=== PATIENT | female | born 1935 | race Caucasian/White ===

== ENCOUNTER 2018-11-19 11:44 | Inpatient (IN) | payer MEDICARE, MEDICAID ==
[~2018-11-19] VITALS: Ht 165.1 cm; Wt 152.6 kg
[~2018-11-19 11:44] MED LIST: CHLO50TA PO; DEXT15DR7 EACHEYE; HYDR-4353 PO; HYDR28OI2 TP; LEVO125T PO; LISI2.5T2 PO; POTA20TA19 PO; ZOLP5TAB8 PO
[2018-11-19] MEDS ORDERED: ipratropium/albuterol 3ml nebule NEB ONE (11:55)
[2018-11-19] MEDS ORDERED: furosemide 40mg/4ml inj IV ONE (11:55)
[2018-11-19] MEDS ORDERED: methylPREDNISolone sod succ 125mg/2ml vial IV ONE (11:55)
[2018-11-19 12:31] LABS: ABG BASE EXCESS 3.6 mmol/L (-2.0-3.0); ABG HCO3 30.5 mmol/L (22.0-26.0); ABG OXYGEN SATURATION 93.4 % (95-98); ABG PCO2 (T) 55.7 mmHg (32.0-45.0); ABG PH (T) 7.356 (7.350-7.450); ABG PO2 (T) 68.8 mmHg (83-108); ALLEN'S TEST Positive; FCOHb 1.6 % (0.5-1.5); FLOW 5 L/min; FMetHb 0.2 % (0.3-1.12); FO2Hb 91.7 % (94-100); TOTAL HEMOGLOBIN 13.9 G/dl (12.0-16.0)
[2018-11-19] MEDS ORDERED: acetaminophen 325mg tablet PO ONE (12:40)
[2018-11-19 12:43] LABS: EOSINOPHILS % (AUTO) 0.1 % (0-6); HEMOGLOBIN 13.3 g/dl (12.0-16.0); LYMPHOCYTES # (AUTO) 0.2 X10'3 (1.1-4.8)
[2018-11-19 12:45] LABS: BASOPHILS % (AUTO) 0.1 % (0-1); LYMPHOCYTES % (AUTO) 1.6 % (21-51); MEAN CORPUSCULAR HGB CONC 33.2 g/dL (33.0-36.5); MEAN CORPUSCULAR VOLUME 96.2 FL (78-98); MEAN PLATELET VOLUME 8.8 FL (7.4-10.4); MONOCYTES # (AUTO) 0.4 X10'3 (0-0.9); MONOCYTES % (AUTO) 3.3 % (2-12); NEUTROPHILS # (AUTO) 11.6 X10'3 (1.8-7.7); NEUTROPHILS % (AUTO) 94.9 % (42-75); PLATELET COUNT 153 X10'3 (140-440); RED BLOOD COUNT 4.16 X10'6 (4.20-5.60); RED CELL DISTRIBUTION WIDTH 13.6 % (11.5-14.5); WHITE BLOOD COUNT 12.2 X10'3 (4.5-11.0)
[2018-11-19 12:55] LABS: PARTIAL THROMBOPLASTIN TIME 31 SECONDS (22-32)
[2018-11-19 13:13] LABS: ALANINE AMINOTRANSFERASE 26 U/L (12-78); ALBUMIN 3.6 G/DL (3.4-5.0); ALBUMIN/GLOBULIN RATIO 0.9 (1.1-1.5); ALKALINE PHOSPHATASE 94 IU/L (46-116); ANION GAP 2 (8-16); ASPARTATE AMINO TRANSFERASE 27 U/L (10-37); BILIRUBIN,TOTAL 0.6 MG/DL (0.1-1.0); BLOOD UREA NITROGEN 16 MG/DL (7-18); BUN/CREATININE RATIO 18.8 (6.6-38.0); CALCIUM 8.9 MG/DL (8.5-10.1); CHLORIDE 97 MMOL/L (99-107); CREATININE 0.85 MG/DL (0.40-0.90); GLUCOSE 120 MG/DL (70-104); POTASSIUM 3.8 MMOL/L (3.5-5.1); SODIUM 134 MMOL/L (135-145); TOTAL CARBON DIOXIDE 35.4 MMOL/L (24-32); TOTAL PROTEIN 7.7 G/DL (6.4-8.2); eGFR 64 ML/MIN
[2018-11-19] MEDS ORDERED: potassium CL 10mEq/100ml bag 100 ML IV PRN ×2 (14:35)
[2018-11-19] MEDS ORDERED: ondansetron/PF 4mg/2ml inj IV PRN (14:35)
[2018-11-19] MEDS ORDERED: potassium Cl 20 mEq SR tablet PO PRN ×2 (14:35)
[2018-11-19] MEDS ORDERED: magnesium 2GM in 50ml NS 50 ML IV PRN (14:35)
[2018-11-19] MEDS ORDERED: magnesium 4gm in 100ml NS 100 ML IV PRN (14:35)
[2018-11-19] MEDS ORDERED: magnesium Cl slow-release 64mg tablet PO PRN (14:35)
[2018-11-19] MEDS ORDERED: ondansetron/PF 4mg/2ml inj IV ONE (14:55)
[2018-11-19] MEDS ORDERED: TIMO5DRO32 EACHEYE (15:05)
[2018-11-19] MEDS ORDERED: FURO-150 PO (15:12)
[2018-11-19] MEDS ORDERED: DOCU100C41 PO (15:12)
[2018-11-19] MEDS ORDERED: SENN-162 PO (15:12)
[2018-11-19] MEDS ORDERED: BISA10SU60 RC (15:12)
[2018-11-19] MEDS ORDERED: NITR0.4T51 SL (15:12)
--- NOTE | 2018-11-19 17:02 | NUR ---
TOOK REPORT BY TELEPHONE FROM ELIZABET ESPAÑA
--- NOTE | 2018-11-19 17:20 | NUR ---
RECEIVED FROM ER VIA [facility]. VS STABLE.
--- NOTE | 2018-11-19 17:40 | NUR ---
2 RN SKIN CHECK DONE.
[2018-11-19 17:45] VITALS: BP 115/69
--- NOTE | 2018-11-19 18:29 | NUR ---
Problems reprioritized. Patient report given, questions answered & plan of care reviewed with ELIZABET MANZANO.
--- NOTE | 2018-11-19 18:46 | NUR ---
Patient in room PCU 3028B. I have received report from ELIZABET Marr and had the opportunity to ask questions and assume patient care. Patient asleep for bedside report. 20G R forearm and is saline locked. Will continue to monitor closely.
[2018-11-19 19:00] VITALS: BP 115/69
[2018-11-19] MEDS: heparin, porcine 5000 units/ml vial SQ SCH (19:52)
--- NOTE | 2018-11-19 22:10 | NUR ---
Orders received for CPAP per Dr. Arora. Family brought in CPAP machine at bedside. Will continue to monitor closely.
[2018-11-19 23:00] VITALS: BP 117/55
[2018-11-20] VITALS (7 sets, daily range): BP systolic 110–136; BP diastolic 51–84
[2018-11-20 05:21] LABS: BASOPHILS % (AUTO) 0 % (0-1); EOSINOPHILS % (AUTO) 0 % (0-6); HEMATOCRIT 39.2 % (35.0-45.0); LYMPHOCYTES # (AUTO) 0.3 X10'3 (1.1-4.8); LYMPHOCYTES % (AUTO) 2.9 % (21-51); MEAN CORPUSCULAR HEMOGLOBIN 31.6 PG (27.0-31.0); MEAN CORPUSCULAR HGB CONC 33.1 g/dL (33.0-36.5); MEAN CORPUSCULAR VOLUME 95.7 FL (78-98); MONOCYTES # (AUTO) 0.4 X10'3 (0-0.9); MONOCYTES % (AUTO) 3.5 % (2-12); NEUTROPHILS # (AUTO) 10.9 X10'3 (1.8-7.7); NEUTROPHILS % (AUTO) 93.6 % (42-75); PLATELET COUNT 128 X10'3 (140-440); RED CELL DISTRIBUTION WIDTH 13.4 % (11.5-14.5); WHITE BLOOD COUNT 11.6 X10'3 (4.5-11.0)
[2018-11-20 05:43] LABS: ALBUMIN 3.1 G/DL (3.4-5.0); ANION GAP 6 (8-16); BLOOD UREA NITROGEN 14 MG/DL (7-18); BUN/CREATININE RATIO 19.7 (6.6-38.0); CALCIUM 8.8 MG/DL (8.5-10.1); CHLORIDE 97 MMOL/L (99-107); CREATININE 0.71 MG/DL (0.40-0.90); GLUCOSE 157 MG/DL (70-104); MAGNESIUM 1.8 MG/DL (1.5-2.4); POTASSIUM 3.7 MMOL/L (3.5-5.1); SODIUM 136 MMOL/L (135-145); TOTAL CARBON DIOXIDE 32.8 MMOL/L (24-32); eGFR 79 ML/MIN
--- NOTE | 2018-11-20 06:23 | NUR ---
Problems reprioritized. Patient report given, questions answered & plan of care reviewed with ELIZABET Marr.
--- NOTE | 2018-11-20 06:30 | NUR ---
Patient in room PCU 3028. I have received report from ELIZABET MANZANO and had the opportunity to ask questions and assume patient care.
[2018-11-20] MEDS: K and/or MAG REPLACEMENT MC SCH (08:00)
[2018-11-20] MEDS: heparin, porcine 5000 units/ml vial SQ SCH ×2 (08:32→20:41)
--- NOTE | 2018-11-20 11:45 | NUR ---
PAGER ID: [phone] MESSAGE: DR. SHELTON, 3028B/JOHANNY, C/O LEVEL 10/10 HEAD ACHE PAIN, HAVE NO TREATMENT ORDERS FOR PAIN. MED REC DOES NOT APPEAR TO BE ADDRESSED BY MD. PERALES, [id number]. TY.
--- NOTE | 2018-11-20 12:54 | NUR ---
PAGER ID: [phone] MESSAGE: DR. SHELTON, 3028B/JOHANNY, C/O LEVEL 10/10 HEAD ACHE PAIN, HAVE NO TREATMENT ORDERS FOR PAIN. MED REC DOES NOT APPEAR TO BE ADDRESSED BY MD. PERALES, [id number]. TY.
[2018-11-20] MEDS ORDERED: docusate sod 100mg capsule PO PRN (12:55)
[2018-11-20] MEDS ORDERED: bisacodyl 10mg suppository rectal RC PRN (12:55)
[2018-11-20] MEDS ORDERED: polyvinyl alcohol ophthalmic drops 15ml bottle EACHEYE PRN (12:55)
[2018-11-20] MEDS ORDERED: sennosides 8.6mg tablet PO PRN (12:55)
[2018-11-20] MEDS ORDERED: nitroGLYCERIN 0.4mg SUBLingual tab SL PRN (12:55)
[2018-11-20] MEDS: levoTHYROXINE 125mcg tablet PO SCH (13:17)
[2018-11-20] MEDS: lisinopril 2.5mg tablet PO SCH (13:18)
[2018-11-20] MEDS: HYDROcodone/acetaminophen 10/325mg tab PO PRN (13:19)
--- NOTE | 2018-11-20 18:28 | NUR ---
Problems reprioritized. Patient report given, questions answered & plan of care reviewed with ELIZABET MANZANO.
--- NOTE | 2018-11-20 18:57 | NUR ---
Patient in room PCU 3028b. I have received report from ELIZABET Marr and had the opportunity to ask questions and assume patient care. Patient awake for bedside report and stable at this time. Will continue to monitor closely.
[2018-11-20] MEDS: timolol 0.5% ophthalmic solution 5ml bottle EACHEYE SCH (20:43)
[2018-11-21 04:48] LABS: BASOPHILS % (AUTO) 0.1 % (0-1); EOSINOPHILS # (AUTO) 0.1 X10'3 (0-0.9); EOSINOPHILS % (AUTO) 0.8 % (0-6); HEMATOCRIT 35.7 % (35.0-45.0); LYMPHOCYTES # (AUTO) 1.1 X10'3 (1.1-4.8); LYMPHOCYTES % (AUTO) 13.4 % (21-51); MEAN CORPUSCULAR HEMOGLOBIN 32.6 PG (27.0-31.0); MEAN CORPUSCULAR HGB CONC 33.5 g/dL (33.0-36.5); MEAN CORPUSCULAR VOLUME 97.1 FL (78-98); MEAN PLATELET VOLUME 9.2 FL (7.4-10.4); MONOCYTES # (AUTO) 0.8 X10'3 (0-0.9); MONOCYTES % (AUTO) 9.7 % (2-12); NEUTROPHILS # (AUTO) 6.3 X10'3 (1.8-7.7); PLATELET COUNT 135 X10'3 (140-440); RED BLOOD COUNT 3.67 X10'6 (4.20-5.60); RED CELL DISTRIBUTION WIDTH 13.7 % (11.5-14.5); WHITE BLOOD COUNT 8.3 X10'3 (4.5-11.0)
[2018-11-21 05:01] LABS: ALBUMIN 2.8 G/DL (3.4-5.0); ANION GAP 2 (8-16); BLOOD UREA NITROGEN 19 MG/DL (7-18); BUN/CREATININE RATIO 27.1 (6.6-38.0); CALCIUM 8.8 MG/DL (8.5-10.1); CHLORIDE 97 MMOL/L (99-107); GLUCOSE 94 MG/DL (70-104); MAGNESIUM 1.9 MG/DL (1.5-2.4); POTASSIUM 3.9 MMOL/L (3.5-5.1); SODIUM 133 MMOL/L (135-145); TOTAL CARBON DIOXIDE 34.4 MMOL/L (24-32); eGFR 80 ML/MIN
[2018-11-21 06:00] VITALS: BP 117/52
--- NOTE | 2018-11-21 06:45 | NUR ---
Problems reprioritized. Patient report given, questions answered & plan of care reviewed with ELIZABET PERALES.
--- NOTE | 2018-11-21 06:54 | NUR ---
Patient in room PCU 3028. I have received report from torres traore and had the opportunity to ask questions and assume patient care.
[2018-11-21] MEDS: K and/or MAG REPLACEMENT MC SCH (08:00)
[2018-11-21] MEDS: hydrocortisone 2.5% 20 gm ointment TP SCH (08:00)
[2018-11-21] MEDS: lisinopril 2.5mg tablet PO SCH (08:26)
[2018-11-21] MEDS: levoTHYROXINE 125mcg tablet PO SCH (08:26)
[2018-11-21] MEDS: heparin, porcine 5000 units/ml vial SQ SCH ×2 (08:26→21:18)
[2018-11-21] MEDS: timolol 0.5% ophthalmic solution 5ml bottle EACHEYE SCH ×2 (08:27→21:17)
[2018-11-21 11:00] VITALS: BP 136/63
[2018-11-21] MEDS: aspirin 81mg tab.chew PO SCH (11:53)
--- NOTE | 2018-11-21 12:21 | NUR ---
PAGER ID: [phone] MESSAGE: DR. SHELTON,1146L/JOHANNY, RECEIVED MEDICAL RECORDS FROM [facility].IN CHART. ANGELLA [phone]. TY
[2018-11-21 15:00] VITALS: BP 123/46
--- NOTE | 2018-11-21 15:22 | NUR ---
PAGED RT:PLEASE CALL ANGELLA [phone] OR COME TO ROOM 3027B, I NEED YOUR EXPERTISE R/T BIPAP/02. TY
--- NOTE | 2018-11-21 18:18 | NUR ---
Problems reprioritized. Patient report given, questions answered & plan of care reviewed with ELIZABET MANZANO.
--- NOTE | 2018-11-21 18:38 | NUR ---
Patient in room PCU 3028b. I have received report from ELIZABET Marr and had the opportunity to ask questions and assume patient care. Patient awake for bedside report and stable at this time. On 2L nasal cannula and saline locked with 20G R FA. Will continue to monitor closely.
[2018-11-21 19:00] VITALS: BP 144/68
[2018-11-21 23:00] VITALS: BP 139/73
[2018-11-21] MEDS: HYDROcodone/acetaminophen 10/325mg tab PO PRN (23:33)
[2018-11-22 03:00] VITALS: BP 101/53
[2018-11-22 04:46] LABS: BASOPHILS % (AUTO) 0.3 % (0-1); EOSINOPHILS # (AUTO) 0.2 X10'3 (0-0.9); EOSINOPHILS % (AUTO) 3.1 % (0-6); HEMATOCRIT 37.4 % (35.0-45.0); HEMOGLOBIN 12.4 g/dl (12.0-16.0); LYMPHOCYTES # (AUTO) 1.3 X10'3 (1.1-4.8); LYMPHOCYTES % (AUTO) 22.2 % (21-51); MEAN CORPUSCULAR HEMOGLOBIN 32.1 PG (27.0-31.0); MEAN CORPUSCULAR HGB CONC 33.2 g/dL (33.0-36.5); MEAN CORPUSCULAR VOLUME 96.8 FL (78-98); MONOCYTES # (AUTO) 0.5 X10'3 (0-0.9); MONOCYTES % (AUTO) 9.3 % (2-12); NEUTROPHILS # (AUTO) 3.8 X10'3 (1.8-7.7); NEUTROPHILS % (AUTO) 65.1 % (42-75); PLATELET COUNT 151 X10'3 (140-440); RED BLOOD COUNT 3.86 X10'6 (4.20-5.60); RED CELL DISTRIBUTION WIDTH 13.4 % (11.5-14.5); WHITE BLOOD COUNT 5.8 X10'3 (4.5-11.0)
[2018-11-22 05:25] LABS: ALBUMIN 2.9 G/DL (3.4-5.0); ANION GAP 3 (8-16); BLOOD UREA NITROGEN 19 MG/DL (7-18); BUN/CREATININE RATIO 28.8 (6.6-38.0); CALCIUM 9.1 MG/DL (8.5-10.1); CHLORIDE 99 MMOL/L (99-107); CREATININE 0.66 MG/DL (0.40-0.90); GLUCOSE 88 MG/DL (70-104); POTASSIUM 4.2 MMOL/L (3.5-5.1); SODIUM 138 MMOL/L (135-145); TOTAL CARBON DIOXIDE 35.8 MMOL/L (24-32); eGFR 86 ML/MIN
--- NOTE | 2018-11-22 06:33 | NUR ---
Problems reprioritized. Patient report given, questions answered & plan of care reviewed with ELIZABET Gasca.
--- NOTE | 2018-11-22 06:36 | NUR ---
Patient in room PCU 3028. I have received report from Mat MCNEAL and had the opportunity to ask questions and assume patient care.
[2018-11-22] MEDS: levoTHYROXINE 125mcg tablet PO SCH (07:17)
[2018-11-22] MEDS: aspirin 81mg tab.chew PO SCH (07:17)
[2018-11-22] MEDS: lisinopril 2.5mg tablet PO SCH (07:17)
[2018-11-22] MEDS: timolol 0.5% ophthalmic solution 5ml bottle EACHEYE SCH ×2 (07:19→21:11)
[2018-11-22] MEDS: heparin, porcine 5000 units/ml vial SQ SCH ×2 (07:20→21:11)
[2018-11-22] MEDS: K and/or MAG REPLACEMENT MC SCH (08:00)
[2018-11-22] MEDS: hydrocortisone 2.5% 20 gm ointment TP SCH (08:00)
--- NOTE | 2018-11-22 10:16 | NUR ---
Initial: Pt admit with SOB and CHF. Pt currently on heart healthy diet with documented 75-100% PO intake meeting nutrient needs. [facility] 11/19. No nutrition diagnosis at this time. Will continue to follow. Recommendations: 1) Continue heart healthy diet 2) Routine bowel care 3) Wt per rx Addendum: 11/22/18 at [address] Amended: Links added.
[2018-11-22 11:00] VITALS: BP 122/59
--- NOTE | 2018-11-22 14:01 | NUR ---
PAGER ID: [phone] MESSAGE: 3028B JoseZahra if pt is going to be discharged today, transportation will need to be set up through [facility]. Thank you, Elo #[phone] Addendum: 11/22/18 at 1404 by Elo Burleson RN Dr. Garcia called back. Pt will not be discharged today. Per MD, qualify pt for home O2 to evaluate need to arrange for home O2.
[2018-11-22 15:00] VITALS: BP 122/57
--- NOTE | 2018-11-22 15:55 | NUR ---
O2 Sat while ambulating on room air: 88% Recovery O2 Sat while ambulating on 2 LPM: 93% No further documentation is necessary.
--- NOTE | 2018-11-22 15:58 | NUR ---
notified case management about O2 qualification.
--- NOTE | 2018-11-22 17:25 | NUR ---
PAGER ID: [phone] MESSAGE: 3028B Zahra Garcia. Pt. requesting PO Lasix and ambien, both home meds. pt. has a Hx of sleep apnea and wears a CPAP machine. Please advise. Tatyana [phone] Addendum: 11/22/18 at 1731 by Tatyana Gilmore RN ordered PO lasix 40mg BID and PRN ambien 5mg Addendum: 11/22/18 at 1738 by Tatyana Gilmore RN called back to modified pt. orders and to inform us that she put them in [employer]
[2018-11-22] MEDS ORDERED: zolpidem 5mg tablet PO PRN (17:35)
[2018-11-22] MEDS ORDERED: furosemide 10 MG/1 ML 10ml inj IV ONE (17:35)
--- NOTE | 2018-11-22 18:21 | NUR ---
Problems reprioritized. Patient report given, questions answered & plan of care reviewed with Jaspreet MCNEAL.
[2018-11-22 19:00] VITALS: BP 137/61
[2018-11-22 23:00] VITALS: BP 127/43
[2018-11-23 03:00] VITALS: BP 142/70
[2018-11-23 04:47] LABS: BASOPHILS % (AUTO) 0.3 % (0-1); EOSINOPHILS # (AUTO) 0.2 X10'3 (0-0.9); EOSINOPHILS % (AUTO) 4.2 % (0-6); HEMATOCRIT 37.9 % (35.0-45.0); HEMOGLOBIN 12.8 g/dl (12.0-16.0); LYMPHOCYTES # (AUTO) 0.9 X10'3 (1.1-4.8); LYMPHOCYTES % (AUTO) 18.2 % (21-51); MEAN CORPUSCULAR HEMOGLOBIN 32.6 PG (27.0-31.0); MEAN CORPUSCULAR HGB CONC 33.8 g/dL (33.0-36.5); MEAN CORPUSCULAR VOLUME 96.3 FL (78-98); MEAN PLATELET VOLUME 8.6 FL (7.4-10.4); MONOCYTES # (AUTO) 0.6 X10'3 (0-0.9); MONOCYTES % (AUTO) 11.8 % (2-12); NEUTROPHILS # (AUTO) 3.2 X10'3 (1.8-7.7); NEUTROPHILS % (AUTO) 65.5 % (42-75); PLATELET COUNT 147 X10'3 (140-440); RED BLOOD COUNT 3.94 X10'6 (4.20-5.60); RED CELL DISTRIBUTION WIDTH 13.2 % (11.5-14.5); WHITE BLOOD COUNT 4.9 X10'3 (4.5-11.0)
[2018-11-23 04:49] LABS: ALBUMIN 2.9 G/DL (3.4-5.0); ANION GAP 4 (8-16); BLOOD UREA NITROGEN 17 MG/DL (7-18); BUN/CREATININE RATIO 28.8 (6.6-38.0); CALCIUM 9.2 MG/DL (8.5-10.1); CHLORIDE 97 MMOL/L (99-107); CREATININE 0.59 MG/DL (0.40-0.90); GLUCOSE 99 MG/DL (70-104); MAGNESIUM 1.8 MG/DL (1.5-2.4); POTASSIUM 3.7 MMOL/L (3.5-5.1); SODIUM 134 MMOL/L (135-145); TOTAL CARBON DIOXIDE 32.8 MMOL/L (24-32); eGFR > 90 ML/MIN
[2018-11-23 06:00] VITALS: BP 106/73
--- NOTE | 2018-11-23 06:25 | NUR ---
Patient in room PCU 3028. I have received report from Jaspreet MCNEAL and had the opportunity to ask questions and assume patient care.
[2018-11-23 07:17] VITALS: BP_SYST 106
[2018-11-23] MEDS: levoTHYROXINE 125mcg tablet PO SCH (07:17)
[2018-11-23] MEDS: lisinopril 2.5mg tablet PO SCH (07:17)
[2018-11-23] MEDS: furosemide 40mg tablet PO SCH ×2 (07:17→08:00)
[2018-11-23] MEDS: timolol 0.5% ophthalmic solution 5ml bottle EACHEYE SCH (07:17)
[2018-11-23] MEDS: aspirin 81mg tab.chew PO SCH (07:17)
[2018-11-23] MEDS: hydrocortisone 2.5% 20 gm ointment TP SCH (07:18)
[2018-11-23] MEDS: K and/or MAG REPLACEMENT MC SCH (07:18)
[2018-11-23] MEDS: heparin, porcine 5000 units/ml vial SQ SCH (07:18)
[2018-11-23] MEDS ORDERED: ASPI-1265 PO (10:16)
--- NOTE | 2018-11-23 10:41 | NUR ---
Spoke to pt's son Dre at and explained to him that his mother is being discharged. I also explained to Dre that we his mother's power chair must be delivered to the hospital before transportation is arranged. Dre then explained that it is going to be a couple of hours before they can deliver chair.
--- NOTE | 2018-11-23 15:30 | NUR ---
VSS, patient is stable for discharge per md orders, d/c instructions reviewed with patient and all questions answered, new medication prescription called into [facility], iv dc'ed and clean dry dressing applied, tele 42 removed and returned, pt discharged @ 1500 to home using [employer] transportation with granddaughter in mechanical wheelchair, all belongings with patient and she took DME O2 concentrator.
== END 2018-11-23 15:00 | disposition home or self-care (01) | DRG 291 ==
LOC: ER 11:45 → PCU 3S 17:19 → CMPBEDREQ 11-20 21:00
PROVIDERS: ADMIT Internal Medicine; ATTEND Internal Medicine
PROC: 5A09357 Assistance with Respiratory Ventilation, Less than 24 Consecutive Hours, Continuous Positive Airway Pressure (ICD-10-PCS; principal; 2018-11-19)
PROC: 5A09357 Assistance with Respiratory Ventilation, Less than 24 Consecutive Hours, Continuous Positive Airway Pressure (ICD-10-PCS; 2018-11-20)
PROC: 5A09357 Assistance with Respiratory Ventilation, Less than 24 Consecutive Hours, Continuous Positive Airway Pressure (ICD-10-PCS; 2018-11-21)
PROC: 5A09357 Assistance with Respiratory Ventilation, Less than 24 Consecutive Hours, Continuous Positive Airway Pressure (ICD-10-PCS; 2018-11-22)
DX: I50.33 Acute on chronic diastolic (congestive) heart failure (principal); J96.21 Acute and chronic respiratory failure with hypoxia; Z68.43 Body mass index [BMI] 50.0-59.9, adult; I50.9 Heart failure, unspecified; G89.29 Other chronic pain; M19.90 Unspecified osteoarthritis, unspecified site; Z60.2 Problems related to living alone; Z66 Do not resuscitate; G47.33 Obstructive sleep apnea (adult) (pediatric); I48.91 Unspecified atrial fibrillation; E66.01 Morbid (severe) obesity due to excess calories; E03.9 Hypothyroidism, unspecified; J44.9 Chronic obstructive pulmonary disease, unspecified; I11.0 Hypertensive heart disease with heart failure; Z90.49 Acquired absence of other specified parts of digestive tract; Z90.710 Acquired absence of both cervix and uterus; Z88.0 Allergy status to penicillin; Z88.8 Allergy status to other drugs, medicaments and biological substances; Z86.73 Personal history of transient ischemic attack (TIA), and cerebral infarction without residual deficits; Z79.899 Other long term (current) drug therapy
CPT/HCPCS: 36415; 36600; 71045; 80048; 80053; 82803; 83605; 83735; 83880; 84443; 84484; 85018; 85025; 85610; 85730; 87040; 87081; 93005; 93306; 93971; 94640; 94760; 96374; 97110; 97161; 97530; 99285; G0378; J1644; J1940; J2405; J2930

== ENCOUNTER 2019-05-17 15:49 | Inpatient (IN) | payer MEDICARE, MEDICAID ==
[~2019-05-17] VITALS: Ht 170.2 cm; Wt 172.7 kg
[~2019-05-17 15:49] MED LIST changes: +ASPI-1265 PO; +BISA10SU60 RC; -CHLO50TA PO; +DOCU100C41 PO; +FURO-150 PO; +NITR0.4T51 SL; +SENN-162 PO; +TIMO5DRO32 EACHEYE
--- NOTE | 2019-05-17 16:07 | NUR ---
xray at bedside.
[2019-05-17 16:42] LABS: BASOPHILS % (AUTO) 0.4 % (0-1); EOSINOPHILS % (AUTO) 0.4 % (0-6); HEMATOCRIT 32.9 % (35.0-45.0); HEMOGLOBIN 10.9 g/dl (12.0-16.0); LYMPHOCYTES # (AUTO) 0.4 X10'3 (1.1-4.8); LYMPHOCYTES % (AUTO) 11.1 % (21-51); MEAN CORPUSCULAR HEMOGLOBIN 31.1 PG (27.0-31.0); MEAN CORPUSCULAR HGB CONC 33.1 g/dL (33.0-36.5); MEAN PLATELET VOLUME 8.6 FL (7.4-10.4); MONOCYTES # (AUTO) 0.5 X10'3 (0-0.9); MONOCYTES % (AUTO) 16.9 % (2-12); NEUTROPHILS # (AUTO) 2.3 X10'3 (1.8-7.7); NEUTROPHILS % (AUTO) 71.2 % (42-75); PLATELET COUNT 124 X10'3 (140-440); RED CELL DISTRIBUTION WIDTH 14.1 % (11.5-14.5); WHITE BLOOD COUNT 3.2 X10'3 (4.5-11.0)
[2019-05-17 16:56] LABS: PARTIAL THROMBOPLASTIN TIME 29 SECONDS (22-32)
[2019-05-17 16:57] LABS: ALANINE AMINOTRANSFERASE 15 U/L (12-78); ALBUMIN 3.4 G/DL (3.4-5.0); ALBUMIN/GLOBULIN RATIO 0.9 (1.1-1.5); ALKALINE PHOSPHATASE 103 IU/L (46-116); ANION GAP 1 (8-16); ASPARTATE AMINO TRANSFERASE 20 U/L (10-37); BILIRUBIN,TOTAL 0.5 MG/DL (0.1-1.0); BLOOD UREA NITROGEN 12 MG/DL (7-18); BUN/CREATININE RATIO 14.6 (6.6-38.0); CALCIUM 8.7 MG/DL (8.5-10.1); CHLORIDE 97 MMOL/L (99-107); CREATININE 0.82 MG/DL (0.40-0.90); GLUCOSE 105 MG/DL (70-104); POTASSIUM 4.1 MMOL/L (3.5-5.1); SODIUM 136 MMOL/L (135-145); TOTAL CARBON DIOXIDE 37.8 MMOL/L (24-32); TOTAL PROTEIN 7.2 G/DL (6.4-8.2); eGFR 67 ML/MIN
[2019-05-17] MEDS ORDERED: furosemide 40mg/4ml inj IV ONE (17:35)
[2019-05-17] MEDS ORDERED: VITE1000C PO (18:01)
[2019-05-17] MEDS ORDERED: ASPI-611 PO (18:01)
--- NOTE | 2019-05-17 18:12 | NUR ---
Pure Wick placed and attached to high suction. Patient adjusted in bed. Patient tolerated well.
--- NOTE | 2019-05-17 19:04 | NUR ---
Rt at bedside to place Pt on our Bipap, per order from HARRISON Winslow. He reports Pt to be placed on Bipap not due to severe sob at this time but to assist moving fluid from lungs dt CHF exacerbation. Pt currently on 5 liters no and 92% with RR 22. Pt appears in no distress. Does use cpap at night and family sacha her home unit. Pt with family at bedside. has [place]wick in place as Pt with difficulty getting oob and gets sob with moving. Was given lasix 40 mg iv w/in the past hour. Awaiting hospitalist.
[2019-05-17] MEDS ORDERED: potassium CL 10mEq/100ml bag 100 ML IV PRN ×2 (19:25)
[2019-05-17] MEDS ORDERED: potassium Cl 20 mEq SR tablet PO PRN ×2 (19:25)
[2019-05-17] MEDS ORDERED: ondansetron/PF 4mg/2ml inj IV PRN (19:25)
[2019-05-17] MEDS ORDERED: albuterol 2.5 MG/3 ML nebule NEB PRN ×2 (19:25)
[2019-05-17] MEDS ORDERED: sennosides 8.6mg tablet PO PRN (19:35)
[2019-05-17] MEDS: lisinopril 2.5mg tablet PO SCH (19:35)
[2019-05-17] MEDS ORDERED: bisacodyl 10mg suppository rectal RC PRN (19:35)
[2019-05-17] MEDS: levoTHYROXINE 125mcg tablet PO SCH (19:35)
[2019-05-17] MEDS ORDERED: nitroGLYCERIN 0.4mg SUBLingual tab SL PRN (19:35)
--- NOTE | 2019-05-17 19:44 | NUR ---
son, jo ann garrett, [phone] home phone. otilio levi, who is primary caregiver (same number). call with any updates. they are leaving now. pt given tea and reports she is very thirsty. sats on bipap w/35% fio2 now 97%. rr26. awiting ipa
[2019-05-17] MEDS ORDERED: polyvinyl alcohol ophthalmic drops 15ml bottle EACHEYE PRN (19:50)
[2019-05-17] MEDS: K and/or MAG REPLACEMENT MC SCH (20:00)
[2019-05-17] MEDS ORDERED: furosemide 20MG tablet PO SCH (20:00)
[2019-05-17] MEDS: heparin, porcine 5000 units/ml vial SQ SCH (20:00)
[2019-05-17 20:30] LABS: ABG BASE EXCESS 5.8 mmol/L (-2.0-3.0); ABG HCO3 32.4 mmol/L (22.0-26.0); ABG OXYGEN SATURATION 96.8 % (95-98); ABG PCO2 (T) 55.7 mmHg (35.0-45.0); ABG PH (T) 7.381 (7.350-7.450); ABG PO2 (T) 93.1 mmHg (83-108); ALLEN'S TEST Positive; FCOHb 0.7 % (0.5-1.5); FMetHb 0.1 % (0.3-1.12); MINUTE VOLUME 8 L/min; PATIENT TEMPERATURE 36.8; RESPIRATORY RATE 12 b/min; RESPIRATORY RATE (OBSERVED) 22 b/min; TOTAL HEMOGLOBIN 12.1 G/dl (12.0-16.0)
--- NOTE | 2019-05-17 20:34 | NUR ---
DR OCONNOR CALLING TO UPDATE ME THAT FOR ADMISSION, PT TO HAVE BIPAP ORDERS PRN AND PER RT RECOMMENDATIONS. PT ALSO OK TO USE HOME BIPAP UNIT IF PREFERABLE. RT, RAUL , UPDATED AND REPROTS PT PREFERS TO USE OUR UNIT THROUGH THE NIGHT.
--- NOTE | 2019-05-17 21:26 | NUR ---
IPA 316A, REPORT TO ELIZABET PETERSON, [facility]. PT IS A&OX4 AND COOPERATIVE WITH CARE. REMAINS ON BIPAP AT 35% FIO2. AFIB ON MONITOR. DENIES ANY CP.
[2019-05-17 22:00] VITALS: BP 144/85
--- NOTE | 2019-05-17 22:50 | NUR ---
Patient in room MED 316. I have received report from Comfort MCNEAL and had the opportunity to ask questions and assume patient care.
--- NOTE | 2019-05-18 00:50 | NUR ---
Paged Dr. Garcia. Zahra Matamoros Allen. Room 316 We need an official order for the Bipap. Normally uses one at home when she's sleeping.
[2019-05-18 02:00] VITALS: BP 145/78
[2019-05-18 06:00] VITALS: BP 141/73
[2019-05-18 06:19] LABS: BASOPHILS % (AUTO) 0.4 % (0-1); EOSINOPHILS % (AUTO) 1.1 % (0-6); HEMATOCRIT 31.5 % (35.0-45.0); HEMOGLOBIN 10.6 g/dl (12.0-16.0); LYMPHOCYTES # (AUTO) 0.4 X10'3 (1.1-4.8); LYMPHOCYTES % (AUTO) 13.5 % (21-51); MEAN CORPUSCULAR HEMOGLOBIN 31.8 PG (27.0-31.0); MEAN CORPUSCULAR HGB CONC 33.7 g/dL (33.0-36.5); MEAN CORPUSCULAR VOLUME 94.4 FL (78-98); MEAN PLATELET VOLUME 8.8 FL (7.4-10.4); MONOCYTES # (AUTO) 0.5 X10'3 (0-0.9); MONOCYTES % (AUTO) 19.6 % (2-12); NEUTROPHILS # (AUTO) 1.7 X10'3 (1.8-7.7); NEUTROPHILS % (AUTO) 65.4 % (42-75); PLATELET COUNT 117 X10'3 (140-440); RED BLOOD COUNT 3.34 X10'6 (4.20-5.60); WHITE BLOOD COUNT 2.6 X10'3 (4.5-11.0)
[2019-05-18 06:27] LABS: ALBUMIN 3.1 G/DL (3.4-5.0); ANION GAP 0 (8-16); BLOOD UREA NITROGEN 11 MG/DL (7-18); BUN/CREATININE RATIO 14.7 (6.6-38.0); CALCIUM 8.3 MG/DL (8.5-10.1); CHLORIDE 99 MMOL/L (99-107); CREATININE 0.75 MG/DL (0.40-0.90); GLUCOSE 98 MG/DL (70-104); POTASSIUM 3.8 MMOL/L (3.5-5.1); SODIUM 138 MMOL/L (135-145); TOTAL CARBON DIOXIDE 39.1 MMOL/L (24-32); eGFR 74 ML/MIN
--- NOTE | 2019-05-18 06:28 | NUR ---
Patient in room MED 316. I have received report from ELIZABET Hill and had the opportunity to ask questions and assume patient care.
[2019-05-18] MEDS: K and/or MAG REPLACEMENT MC SCH ×2 (08:00→20:00)
[2019-05-18] MEDS: hydrocortisone 2.5% 20 gm ointment TP SCH (08:00)
[2019-05-18 08:29] LABS: HYPOCHROMASIA 1+; NUCLEATED RED BLOOD CELLS 1 /100WBC (0-0); PLATELET ESTIMATE DECREASED; POLYCHROMASIA FEW; TOTAL CELLS COUNTED 100
[2019-05-18] MEDS: acetaminophen 325mg tablet PO PRN ×3 (10:20→21:46)
[2019-05-18] MEDS: heparin, porcine 5000 units/ml vial SQ SCH ×2 (10:21→20:37)
[2019-05-18] MEDS: potassium Cl 20 mEq SR tablet PO SCH (10:23)
[2019-05-18] MEDS: vitamin E 400 unit capsule PO SCH (10:24)
[2019-05-18] MEDS: aspirin 81mg tab.chew PO SCH (10:24)
[2019-05-18] MEDS: lisinopril 2.5mg tablet PO SCH (10:24)
[2019-05-18] MEDS: levoTHYROXINE 125mcg tablet PO SCH (10:24)
--- NOTE | 2019-05-18 10:30 | NUR ---
pt. AM med pass late d/t pt. getting an echo and RT treatment.
[2019-05-18] MEDS: furosemide 40mg/4ml inj IV SCH ×2 (10:31→20:37)
[2019-05-18 11:00] VITALS: BP 122/50
[2019-05-18] MEDS: albuterol 2.5 MG/3 ML nebule NEB SCH ×3 (11:15→21:05)
[2019-05-18] MEDS ORDERED: HYDROcodone/acetaminophen 5mg/325mg tablet PO PRN (11:15)
[2019-05-18 12:24] LABS: MAGNESIUM 1.8 MG/DL (1.5-2.4)
[2019-05-18 15:00] VITALS: BP 121/55
[2019-05-18 18:00] VITALS: BP 139/47
--- NOTE | 2019-05-18 18:25 | NUR ---
Patient in room MED 316. I have received report from CAROLIN MCNEAL and had the opportunity to ask questions and assume patient care.
--- NOTE | 2019-05-18 18:30 | NUR ---
Problems reprioritized. Patient report given, questions answered & plan of care reviewed with ELIZABET Burton.
--- NOTE | 2019-05-18 20:00 | NUR ---
Pt has bulging masses on left, right and anterior sides of her neck that pulsate Addendum: 05/19/19 at 0258 by Lindsey Bateman RN Amended: Links added.
[2019-05-18 22:00] VITALS: BP 144/82
[2019-05-19 02:00] VITALS: BP 121/52
[2019-05-19] MEDS: albuterol 2.5 MG/3 ML nebule NEB SCH ×4 (02:42→20:27)
--- NOTE | 2019-05-19 04:28 | NUR ---
Spoke to Jaron on phone about getting a Bipap ordered for pt, he agreed with the need for the order.
[2019-05-19 06:00] VITALS: BP 123/56
--- NOTE | 2019-05-19 06:15 | NUR ---
Problems reprioritized. Patient report given, questions answered & plan of care reviewed with Barb MCNEAL.
[2019-05-19 06:21] LABS: ANION GAP 5 (8-16); BLOOD UREA NITROGEN 13 MG/DL (7-18); BUN/CREATININE RATIO 17.1 (6.6-38.0); CALCIUM 8.2 MG/DL (8.5-10.1); CHLORIDE 97 MMOL/L (99-107); CREATININE 0.76 MG/DL (0.40-0.90); GLUCOSE 79 MG/DL (70-104); POTASSIUM 3.6 MMOL/L (3.5-5.1); SODIUM 140 MMOL/L (135-145); TOTAL CARBON DIOXIDE 38.3 MMOL/L (24-32); eGFR 73 ML/MIN
--- NOTE | 2019-05-19 06:30 | NUR ---
Patient in room MED 316. I have received report from Josephine MCNEAL and had the opportunity to ask questions and assume patient care.
[2019-05-19] MEDS: K and/or MAG REPLACEMENT MC SCH ×2 (08:00→20:00)
[2019-05-19 08:29] LABS: BASOPHILS % (AUTO) 0.5 % (0-1); EOSINOPHILS # (AUTO) 0.1 X10'3 (0-0.9); EOSINOPHILS % (AUTO) 2.5 % (0-6); HEMATOCRIT 34.6 % (35.0-45.0); HEMOGLOBIN 11.3 g/dl (12.0-16.0); LYMPHOCYTES # (AUTO) 0.5 X10'3 (1.1-4.8); LYMPHOCYTES % (AUTO) 17.3 % (21-51); MEAN CORPUSCULAR HGB CONC 32.7 g/dL (33.0-36.5); MONOCYTES # (AUTO) 0.6 X10'3 (0-0.9); MONOCYTES % (AUTO) 18.6 % (2-12); NEUTROPHILS # (AUTO) 1.9 X10'3 (1.8-7.7); NEUTROPHILS % (AUTO) 61.1 % (42-75); PLATELET COUNT 123 X10'3 (140-440); RED BLOOD COUNT 3.64 X10'6 (4.20-5.60); RED CELL DISTRIBUTION WIDTH 14.5 % (11.5-14.5); WHITE BLOOD COUNT 3.1 X10'3 (4.5-11.0)
[2019-05-19] MEDS: lisinopril 2.5mg tablet PO SCH (09:06)
[2019-05-19] MEDS: levoTHYROXINE 125mcg tablet PO SCH (09:07)
[2019-05-19] MEDS: aspirin 81mg tab.chew PO SCH (09:07)
[2019-05-19] MEDS: potassium Cl 20 mEq SR tablet PO SCH (09:07)
[2019-05-19] MEDS: vitamin E 400 unit capsule PO SCH (09:07)
[2019-05-19] MEDS: furosemide 40mg/4ml inj IV SCH ×2 (09:07→21:24)
[2019-05-19] MEDS: heparin, porcine 5000 units/ml vial SQ SCH ×2 (09:08→21:30)
[2019-05-19] MEDS: hydrocortisone 2.5% 20 gm ointment TP SCH (09:09)
[2019-05-19 11:00] VITALS: BP 127/57
[2019-05-19 15:00] VITALS: BP 123/72
[2019-05-19 18:00] VITALS: BP 141/69
--- NOTE | 2019-05-19 18:00 | NUR ---
Patient in room MED 316. I have received report from Barb MCNEAL and had the opportunity to ask questions and assume patient care.
--- NOTE | 2019-05-19 18:35 | NUR ---
Problems reprioritized. Patient report given, questions answered & plan of care reviewed with Josephine MCNEAL.
[2019-05-19 22:00] VITALS: BP 130/73
[2019-05-20 02:00] VITALS: BP 137/79
[2019-05-20] MEDS: albuterol 2.5 MG/3 ML nebule NEB SCH ×4 (03:29→21:50)
[2019-05-20 06:00] VITALS: BP 117/57
--- NOTE | 2019-05-20 06:04 | NUR ---
Problems reprioritized. Patient report given, questions answered & plan of care reviewed with Zoey MCNEAL.
[2019-05-20 06:41] LABS: BASOPHILS % (AUTO) 0.7 % (0-1); EOSINOPHILS # (AUTO) 0.1 X10'3 (0-0.9); EOSINOPHILS % (AUTO) 3.7 % (0-6); HEMATOCRIT 35.1 % (35.0-45.0); HEMOGLOBIN 11.5 g/dl (12.0-16.0); LYMPHOCYTES # (AUTO) 0.7 X10'3 (1.1-4.8); LYMPHOCYTES % (AUTO) 26.3 % (21-51); MEAN CORPUSCULAR HEMOGLOBIN 31.2 PG (27.0-31.0); MEAN CORPUSCULAR HGB CONC 32.8 g/dL (33.0-36.5); MEAN CORPUSCULAR VOLUME 95.3 FL (78-98); MEAN PLATELET VOLUME 8.6 FL (7.4-10.4); MONOCYTES # (AUTO) 0.4 X10'3 (0-0.9); MONOCYTES % (AUTO) 15.9 % (2-12); NEUTROPHILS # (AUTO) 1.5 X10'3 (1.8-7.7); NEUTROPHILS % (AUTO) 53.4 % (42-75); PLATELET COUNT 124 X10'3 (140-440); RED BLOOD COUNT 3.68 X10'6 (4.20-5.60); WHITE BLOOD COUNT 2.8 X10'3 (4.5-11.0)
[2019-05-20 07:12] LABS: PLATELET ESTIMATE DECREASED; TOTAL CELLS COUNTED 100
[2019-05-20 07:14] LABS: ALBUMIN 3.1 G/DL (3.4-5.0); ANION GAP 2 (8-16); BLOOD UREA NITROGEN 10 MG/DL (7-18); BUN/CREATININE RATIO 13.3 (6.6-38.0); CALCIUM 8.5 MG/DL (8.5-10.1); CHLORIDE 96 MMOL/L (99-107); CREATININE 0.75 MG/DL (0.40-0.90); GLUCOSE 87 MG/DL (70-104); POTASSIUM 3.6 MMOL/L (3.5-5.1); SODIUM 140 MMOL/L (135-145); eGFR 74 ML/MIN
[2019-05-20 07:18] LABS: TOTAL CARBON DIOXIDE 41.7 MMOL/L (24-32)
[2019-05-20 07:51] LABS: MAGNESIUM 1.8 MG/DL (1.5-2.4)
[2019-05-20] MEDS: K and/or MAG REPLACEMENT MC SCH ×2 (08:00→20:00)
[2019-05-20] MEDS: hydrocortisone 2.5% 20 gm ointment TP SCH (08:00)
[2019-05-20] MEDS: furosemide 40mg/4ml inj IV SCH ×2 (09:40→20:48)
[2019-05-20] MEDS: levoTHYROXINE 125mcg tablet PO SCH (09:41)
[2019-05-20] MEDS: potassium Cl 20 mEq SR tablet PO SCH (09:41)
[2019-05-20] MEDS: vitamin E 400 unit capsule PO SCH (09:42)
[2019-05-20] MEDS: aspirin 81mg tab.chew PO SCH (09:42)
[2019-05-20] MEDS: lisinopril 2.5mg tablet PO SCH (09:42)
[2019-05-20] MEDS: heparin, porcine 5000 units/ml vial SQ SCH ×2 (09:43→20:49)
--- NOTE | 2019-05-20 10:00 | NUR ---
DR SHELTON NOTIFIED OF CO2=41.7,no orders taken, pt cont on o2 2l/nc
[2019-05-20 11:00] VITALS: BP 128/62
[2019-05-20 15:00] VITALS: BP 114/76
--- NOTE | 2019-05-20 18:00 | NUR ---
Problems reprioritized. Patient report given, questions answered & plan of care reviewed with torres RAI.
--- NOTE | 2019-05-20 18:33 | NUR ---
Patient in room MED 316. I have received report from Zoey MCNEAL and had the opportunity to ask questions and assume patient care. Upon bedside report pt o2 was at 8L/NC, Also AM co2 lab was 41.7. I turned o2 down to 2L/NC . Dr. Garcia notified related to o2 settings. new orders noted. RT paged. new orders as follows 1. lab- ABG x1 now on currently setting.
[2019-05-20 19:23] VITALS: BP 139/91
--- NOTE | 2019-05-20 19:38 | NUR ---
Dr Salmeron notified r/t strict I and O order. pt sylvia unsuccessful with I and O r/t morbid obesity, pt thighs are kinking suction. new orders. 1. place carranza catheter/ critically ill strict I and O protocol
[2019-05-20 19:51] LABS: ABG BASE EXCESS 14.7 mmol/L (-2.0-3.0); ABG HCO3 42.7 mmol/L (22.0-26.0); ABG OXYGEN SATURATION 85.3 % (95-98); ABG PCO2 (T) 69.9 mmHg (35.0-45.0); ABG PH (T) 7.404 (7.350-7.450); ABG PO2 (T) 50.2 mmHg (83-108); FCOHb 0.8 % (0.5-1.5); FLOW 2 L/min; FMetHb 0.2 % (0.3-1.12); FO2Hb 84.4 % (94-100); RESPIRATORY RATE (OBSERVED) 20 b/min; TOTAL HEMOGLOBIN 13.1 G/dl (12.0-16.0)
[2019-05-20 22:00] VITALS: BP 158/87
[2019-05-21] MEDS: albuterol 2.5 MG/3 ML nebule NEB SCH ×3 (02:27→16:16)
[2019-05-21 02:31] VITALS: BP 135/54
[2019-05-21 05:49] VITALS: BP 124/55
[2019-05-21 06:03] LABS: BASOPHILS % (AUTO) 0.2 % (0-1); EOSINOPHILS # (AUTO) 0.1 X10'3 (0-0.9); HEMATOCRIT 34.3 % (35.0-45.0); HEMOGLOBIN 11.4 g/dl (12.0-16.0); LYMPHOCYTES # (AUTO) 0.8 X10'3 (1.1-4.8); LYMPHOCYTES % (AUTO) 21.5 % (21-51); MEAN CORPUSCULAR HEMOGLOBIN 31.5 PG (27.0-31.0); MEAN CORPUSCULAR HGB CONC 33.3 g/dL (33.0-36.5); MEAN CORPUSCULAR VOLUME 94.7 FL (78-98); MEAN PLATELET VOLUME 8.7 FL (7.4-10.4); MONOCYTES # (AUTO) 0.5 X10'3 (0-0.9); NEUTROPHILS # (AUTO) 2.1 X10'3 (1.8-7.7); NEUTROPHILS % (AUTO) 60.3 % (42-75); PLATELET COUNT 131 X10'3 (140-440); RED BLOOD COUNT 3.63 X10'6 (4.20-5.60); RED CELL DISTRIBUTION WIDTH 14.1 % (11.5-14.5); WHITE BLOOD COUNT 3.5 X10'3 (4.5-11.0)
--- NOTE | 2019-05-21 06:15 | NUR ---
Problems reprioritized. Patient report given, questions answered & plan of care reviewed with Zoey MCNEAL.
[2019-05-21 06:22] LABS: ALBUMIN 2.9 G/DL (3.4-5.0); ANION GAP 0 (8-16); BLOOD UREA NITROGEN 14 MG/DL (7-18); BUN/CREATININE RATIO 19.4 (6.6-38.0); CALCIUM 8.6 MG/DL (8.5-10.1); CHLORIDE 97 MMOL/L (99-107); CREATININE 0.72 MG/DL (0.40-0.90); GLUCOSE 89 MG/DL (70-104); POTASSIUM 3.5 MMOL/L (3.5-5.1); SODIUM 139 MMOL/L (135-145); eGFR 78 ML/MIN
[2019-05-21 06:48] LABS: TOTAL CARBON DIOXIDE 42.2 MMOL/L (24-32)
--- NOTE | 2019-05-21 06:49 | NUR ---
Patient in room MED 316. I have received report from ELIZABET Kunz and had the opportunity to ask questions and assume patient care.
[2019-05-21] MEDS: potassium Cl 20 mEq SR tablet PO SCH (09:13)
[2019-05-21] MEDS: furosemide 40mg/4ml inj IV SCH (09:13)
[2019-05-21] MEDS: levoTHYROXINE 125mcg tablet PO SCH (09:13)
[2019-05-21] MEDS: aspirin 81mg tab.chew PO SCH (09:14)
[2019-05-21] MEDS: vitamin E 400 unit capsule PO SCH (09:14)
[2019-05-21] MEDS: lisinopril 2.5mg tablet PO SCH (09:15)
[2019-05-21] MEDS: heparin, porcine 5000 units/ml vial SQ SCH (09:16)
--- NOTE | 2019-05-21 09:52 | NUR ---
Loc consult: Loc documented at 10. Pt with +2 BLE edema. Skin is intact. PO intake 75-100% on heart healthy diet. Will continue to monitor. Addendum: 05/21/19 at 52 by Wing Ny NORIEGA Amended: Links added. Addendum: 05/21/19 at [address] HARI Approves
[2019-05-21 11:00] VITALS: BP 164/87
[2019-05-21 15:00] VITALS: BP 158/82
[2019-05-21] MEDS ORDERED: ALBU2.5V7 NEB (16:09)
--- NOTE | 2019-05-21 17:25 | NUR ---
reviewed all discharge instructions with pt. and granddaughter,including albuterol prescription sent to pharmacy,need for f/u appt with pmd within 1 week pt.discharged with all belongings via electric wheelchair and home o2 provided by granddaughter pt will be assisted on local bus(only transport available to accomodate pt.s size and chair) by granddaughter and met at home
[2019-05-21] MEDS ORDERED: NYSTATIN CREAM - 30GM TUBE TP SCH (20:00)
--- NOTE | 2019-05-22 15:31 | NUR ---
Case Management DC follow up: spoke to pt via telephone. Pt reports feeling really good. Granddaughter is pt IHSS caregiver. Pt states she elevates her legs, and has lost 50 lbs from fluids. Pt states she uses [facility], understands meds and why prescribed. Her granddaughter sets them up so she takes correctly. States she still needs to make follow up appt w/PCP Dr Valentine and will have her granddaughter help. all needs met, questions answered at DC. No further questions at this time.
== END 2019-05-21 17:02 | disposition home or self-care (01) | DRG 291 ==
LOC: ER 15:50 → ED HOLD 19:43 → MED 3N 21:45
PROVIDERS: ADMIT Internal Medicine; ATTEND Internal Medicine
PROC: 5A09357 Assistance with Respiratory Ventilation, Less than 24 Consecutive Hours, Continuous Positive Airway Pressure (ICD-10-PCS; principal; 2019-05-17)
PROC: 5A09357 Assistance with Respiratory Ventilation, Less than 24 Consecutive Hours, Continuous Positive Airway Pressure (ICD-10-PCS; 2019-05-18)
PROC: 5A09357 Assistance with Respiratory Ventilation, Less than 24 Consecutive Hours, Continuous Positive Airway Pressure (ICD-10-PCS; 2019-05-19)
PROC: 5A09357 Assistance with Respiratory Ventilation, Less than 24 Consecutive Hours, Continuous Positive Airway Pressure (ICD-10-PCS; 2019-05-20)
PROC: 5A09357 Assistance with Respiratory Ventilation, Less than 24 Consecutive Hours, Continuous Positive Airway Pressure (ICD-10-PCS; 2019-05-21)
DX: I11.0 Hypertensive heart disease with heart failure (principal); J96.20 Acute and chronic respiratory failure, unspecified whether with hypoxia or hypercapnia; Z68.43 Body mass index [BMI] 50.0-59.9, adult; J44.1 Chronic obstructive pulmonary disease with (acute) exacerbation; E87.6 Hypokalemia; D69.6 Thrombocytopenia, unspecified; E03.9 Hypothyroidism, unspecified; M19.90 Unspecified osteoarthritis, unspecified site; E66.01 Morbid (severe) obesity due to excess calories; G47.33 Obstructive sleep apnea (adult) (pediatric); I07.1 Rheumatic tricuspid insufficiency; I50.82 Biventricular heart failure; Z66 Do not resuscitate; G89.29 Other chronic pain; H40.9 Unspecified glaucoma; D64.9 Anemia, unspecified; Z86.73 Personal history of transient ischemic attack (TIA), and cerebral infarction without residual deficits; Z90.49 Acquired absence of other specified parts of digestive tract; Z90.710 Acquired absence of both cervix and uterus; Z99.81 Dependence on supplemental oxygen; Z79.82 Long term (current) use of aspirin; Z79.899 Other long term (current) drug therapy; Z88.0 Allergy status to penicillin; Z88.8 Allergy status to other drugs, medicaments and biological substances; I50.813 Acute on chronic right heart failure; I50.22 Chronic systolic (congestive) heart failure
CPT/HCPCS: 36415; 36600; 71045; 80048; 80053; 82803; 82948; 83735; 83880; 84484; 85018; 85025; 85610; 85730; 87081; 93005; 93306; 93970; 94640; 94660; 94760; 96374; 97110; 97116; 97162; 97530; 97535; 99285; G0378; J1644; J1940

== ENCOUNTER 2022-05-13 13:36 | Emergency (ER) | payer MEDICARE, MEDICAID ==
[~2022-05-13] VITALS: Ht 165.1 cm; Wt 172.7 kg
[~2022-05-13 13:36] MED LIST changes: +APIX5TAB3 PO; -ASPI-1265 PO; -BISA10SU60 RC; +CLIN-97 PO; -DOCU100C41 PO; -HYDR28OI2 TP; +LISI2.5T14 PO; -LISI2.5T2 PO; +POTA-207 PO; -POTA20TA19 PO; -SENN-162 PO; +SENN-263 PO; -TIMO5DRO32 EACHEYE; +VITA-288 PO; -ZOLP5TAB8 PO
[2022-05-13 13:43] VITALS: BP 161/66
[2022-05-13 14:51] LABS: CLARITY,URINE CLOUDY (Clear); COLOR,URINE YELLOW (Yellow); GLUCOSE, URINE NEGATIVE (Neg); KETONES,URINE NEGATIVE (Neg); LEUKOCYTE ESTERASE ,URINE LARGE (Neg); NITRITES, URINE NEGATIVE (Neg); OCCULT BLOOD,URINE SMALL (Neg); PH,URINE 6.5 (4.8-8.0); PROTEIN,URINE NEGATIVE (Neg); UROBILINOGEN,URINE 0.2 E.U/dL (0.2-1.0)
[2022-05-13 15:04] LABS: UA COLLECTION TYPE CLN CATCH MIDSTREAM; WBC,URINE 50-100 /HPF (0-4)
[2022-05-13 15:05] LABS: BACTERIA,URINE 2+ /HPF (Neg); SQUAMOUS EPITHELIAL CELL,UR MODERATE /LPF (FEW); WBC CLUMPS,URINE MANY /HPF (NEGATIVE)
[2022-05-13] MEDS ORDERED: NITR100C6 PO (15:33)
== END 2022-05-13 15:45 | disposition home or self-care (01) ==
LOC: ER 13:38
DX: N39.0 Urinary tract infection, site not specified (principal); I11.0 Hypertensive heart disease with heart failure; G89.29 Other chronic pain; Z90.49 Acquired absence of other specified parts of digestive tract; Z98.890 Other specified postprocedural states; Z88.0 Allergy status to penicillin; Z79.899 Other long term (current) drug therapy; Z88.8 Allergy status to other drugs, medicaments and biological substances; Z79.1 Long term (current) use of non-steroidal anti-inflammatories (NSAID); Z79.2 Long term (current) use of antibiotics
CPT/HCPCS: 81001; 87077; 87088; 87186; 99283

== ENCOUNTER 2022-06-08 13:41 | Emergency (ER) | payer MEDICARE, MEDICAID ==
[~2022-06-08] VITALS: Ht 165.1 cm; Wt 135.0 kg
[~2022-06-08 13:41] MED LIST changes: +NITR100C6 PO
[2022-06-08 13:50] VITALS: BP 134/60
[2022-06-08 14:16] LABS: CLARITY,URINE CLOUDY (Clear); COLOR,URINE STRAW (Yellow); GLUCOSE, URINE NEGATIVE (Neg); KETONES,URINE NEGATIVE (Neg); LEUKOCYTE ESTERASE ,URINE LARGE (Neg); NITRITES, URINE NEGATIVE (Neg); OCCULT BLOOD,URINE LARGE (Neg); PROTEIN,URINE NEGATIVE (Neg); UROBILINOGEN,URINE 0.2 E.U/dL (0.2-1.0)
[2022-06-08 14:18] LABS: UA COLLECTION TYPE CLN CATCH MIDSTREAM
[2022-06-08 14:21] LABS: BACTERIA,URINE 2+ /HPF (Neg); MUCUS STRANDS NONE SEEN /LPF (Neg); WBC,URINE TNTC /HPF (0-4)
[2022-06-08 14:22] LABS: SQUAMOUS EPITHELIAL CELL,UR FEW /LPF (FEW); STARCH,URINE FEW /HPF (NEGATIVE); WBC CLUMPS,URINE MANY /HPF (NEGATIVE)
[2022-06-08] MEDS ORDERED: CEPH250T PO (14:57)
--- NOTE | 2022-06-11 16:49 | NUR ---
PT WAS CALLED REGARDING LAB RESULTS FROM VISIT ON 06/08/22. INFORMED PT'S WELL SURVEYING ENGINEER THAT SHE HAD A POSITIVE URINE CULTURE AND THAT AN RX FOR BACTRIM DS WAS NEEDED TO REPLACE THE KEFLEX ORIGINALLY ORDERED FOR THE PT. IRRIGATION MANAGER REQUESTED THAT RX BE CALLED TO [facility]. [facility] WAS CALLED REQUESTED AND THE PHARMASIST REFUSED TO TAKE THE RX FOR BACTRIM DS, STATING THAT IT HAD TO BE E-TRANSMITTED. IT WAS EXPLANED THAT THE NEW RX WAS TO REPLACE THE CURRENT ABX PT IS TAKING BASED ON THE RECENT POSITIVE LAB RESULTS. PHARMISIT CONTINUED TO REFUSE THE RX. ATTEMPTED TO CALL THE PT'S WELL SURVEYING ENGINEER TO INFORM THAT THE PHARMASIST REFUSED THE RX AND TO ASK FOR AN ALTERNATE PHARMACY TO CALL THE RX INTO. THERE WAS NO ANSWER AND WAS UNABLE TO LEAVE A MSG DUE TO THE VOICE MAIL WAS NOT SET UP.
== END 2022-06-08 15:03 | disposition home or self-care (01) ==
LOC: ER 13:41
DX: N39.0 Urinary tract infection, site not specified (principal); I11.0 Hypertensive heart disease with heart failure; I50.9 Heart failure, unspecified; G89.29 Other chronic pain; M19.90 Unspecified osteoarthritis, unspecified site; Z88.0 Allergy status to penicillin; Z88.8 Allergy status to other drugs, medicaments and biological substances; Z90.49 Acquired absence of other specified parts of digestive tract; Z90.710 Acquired absence of both cervix and uterus
CPT/HCPCS: 81001; 87077; 87088; 87186; 99283

== ENCOUNTER 2022-08-13 14:29 | Emergency (ER) | payer MEDICARE, MEDICAID ==
[~2022-08-13] VITALS: Ht 165.1 cm; Wt 136.0 kg
[2022-08-13 17:36] LABS: CLARITY,URINE TURBID (Clear); COLOR,URINE YELLOW (Yellow); GLUCOSE, URINE NEGATIVE (Neg); KETONES,URINE NEGATIVE (Neg); LEUKOCYTE ESTERASE ,URINE LARGE (Neg); NITRITES, URINE POSITIVE (Neg); OCCULT BLOOD,URINE SMALL (Neg); PROTEIN,URINE 30 mg/dl (Neg); UROBILINOGEN,URINE 0.2 E.U/dL (0.2-1.0)
[2022-08-13 17:37] LABS: UA COLLECTION TYPE CLN CATCH MIDSTREAM
[2022-08-13 17:42] LABS: BACTERIA,URINE 4+ /HPF (Neg); WBC,URINE TNTC /HPF (0-4)
[2022-08-13 17:44] LABS: SQUAMOUS EPITHELIAL CELL,UR MODERATE /LPF (FEW); TRANSITIONAL EPI CELLS,URINE MODERATE /HPF
[2022-08-13 17:45] LABS: MUCUS STRANDS NONE SEEN /LPF (Neg); RBC,URINE 0-2 /HPF (0-2)
[2022-08-13] MEDS ORDERED: SULF1TAB49 PO (17:56)
[2022-08-13 18:20] VITALS: BP 105/61
== END 2022-08-13 18:25 | disposition home or self-care (01) ==
LOC: ER 14:30
DX: N39.0 Urinary tract infection, site not specified (principal); I11.0 Hypertensive heart disease with heart failure; Z90.49 Acquired absence of other specified parts of digestive tract; Z98.890 Other specified postprocedural states; Z88.0 Allergy status to penicillin; Z88.5 Allergy status to narcotic agent; Z79.899 Other long term (current) drug therapy; Z79.1 Long term (current) use of non-steroidal anti-inflammatories (NSAID); Z79.2 Long term (current) use of antibiotics
CPT/HCPCS: 81001; 87077; 87088; 87186; 99283

== ENCOUNTER 2022-10-20 15:24 | Emergency (ER) | payer MEDICARE, MEDICAID ==
[~2022-10-20] VITALS: Ht 165.1 cm; Wt 170.0 kg
[2022-10-20] MEDS ORDERED: acetaminophen 325mg tablet PO STA (16:36)
[2022-10-20] MEDS ORDERED: normal saline 1000ML IV soln IV ONE (16:40)
[2022-10-20 16:58] VITALS: BP 143/76
[2022-10-20 17:35] LABS: CLARITY,URINE CLOUDY (Clear); COLOR,URINE STRAW (Yellow); GLUCOSE, URINE NEGATIVE (Neg); KETONES,URINE NEGATIVE (Neg); PROTEIN,URINE TRACE mg/dl (Neg); UA COLLECTION TYPE CLN CATCH MIDSTREAM
[2022-10-20 17:36] LABS: LEUKOCYTE ESTERASE ,URINE LARGE (Neg); NITRITES, URINE NEGATIVE (Neg); OCCULT BLOOD,URINE SMALL (Neg); UROBILINOGEN,URINE 0.2 E.U/dL (0.2-1.0)
[2022-10-20 17:37] LABS: WBC,URINE TNTC /HPF (0-4)
[2022-10-20 17:38] LABS: BACTERIA,URINE 4+ /HPF (Neg); SQUAMOUS EPITHELIAL CELL,UR FEW /LPF (FEW)
[2022-10-20] MEDS ORDERED: cephalexin 250mg capsule PO ONE (17:45)
[2022-10-20] MEDS ORDERED: CEPH250T PO (17:49)
[2022-10-20] MEDS ORDERED: PHEN-786 PO (17:49)
[2022-10-20 17:53] LABS: BASOPHILS % (AUTO) 0.3 % (0-1); EOSINOPHILS # (AUTO) 0.1 X10'3 (0-0.9); EOSINOPHILS % (AUTO) 1.9 % (0-6); HEMATOCRIT 41.4 % (35.0-45.0); HEMOGLOBIN 13.8 g/dl (12.0-16.0); LYMPHOCYTES # (AUTO) 0.8 X10'3 (1.1-4.8); LYMPHOCYTES % (AUTO) 18.2 % (21-51); MEAN CORPUSCULAR HEMOGLOBIN 32.6 PG (27.0-31.0); MEAN CORPUSCULAR HGB CONC 33.3 g/dL (33.0-36.5); MEAN CORPUSCULAR VOLUME 98.2 FL (78-98); MEAN PLATELET VOLUME 8.3 FL (7.4-10.4); MONOCYTES # (AUTO) 0.4 X10'3 (0-0.9); MONOCYTES % (AUTO) 9.5 % (2-12); NEUTROPHILS % (AUTO) 70.1 % (42-75); PLATELET COUNT 165 X10'3 (140-440); RED BLOOD COUNT 4.22 X10'6 (4.20-5.60); RED CELL DISTRIBUTION WIDTH 13.8 % (11.5-14.5); WHITE BLOOD COUNT 4.3 X10'3 (4.5-11.0)
[2022-10-20 18:02] LABS: ALANINE AMINOTRANSFERASE 14 U/L (12-78); ALBUMIN 3.4 G/DL (3.4-5.0); ALBUMIN/GLOBULIN RATIO 0.8 (1.1-1.5); ALKALINE PHOSPHATASE 77 IU/L (46-116); ANION GAP 5 (8-16); ASPARTATE AMINO TRANSFERASE 17 U/L (10-37); BILIRUBIN,TOTAL 0.6 MG/DL (0.1-1.0); BLOOD UREA NITROGEN 9 MG/DL (7-18); CALCIUM 9.3 MG/DL (8.5-10.1); CHLORIDE 95 MMOL/L (99-107); CREATININE 0.69 MG/DL (0.40-0.90); GLUCOSE 94 MG/DL (70-104); POTASSIUM 4.3 MMOL/L (3.5-5.1); SODIUM 135 MMOL/L (135-145); TOTAL CARBON DIOXIDE 34.8 MMOL/L (24-32); TOTAL PROTEIN 7.7 G/DL (6.4-8.2); eGFR 81 ML/MIN
== END 2022-10-20 18:05 | disposition home or self-care (01) ==
LOC: ER 15:25
DX: R31.9 Hematuria, unspecified (principal); I11.0 Hypertensive heart disease with heart failure; G89.29 Other chronic pain; Z90.49 Acquired absence of other specified parts of digestive tract; Z88.0 Allergy status to penicillin; Z88.5 Allergy status to narcotic agent; Z79.899 Other long term (current) drug therapy
CPT/HCPCS: 36415; 80053; 81001; 84145; 85025; 87077; 87088; 87186; 99283; J7030